=== PATIENT | female | born 2000 | race Caucasian/White ===

== ENCOUNTER 2020-04-28 10:12 | Outpatient (REF) | payer OTHER, SELFPAY | END 2020-04-28 10:13 | disposition home or self-care (01) | LOC: HO.LAB 10:12 | PROVIDERS: Visit Provider Internal Medicine | DX: Z20.828 Contact with and (suspected) exposure to other viral communicable diseases (principal) | CPT/HCPCS: C9803; U0003 ==

== ENCOUNTER 2020-04-30 13:44 | Emergency (ER) | payer OTHER, SELFPAY ==
[2020-04-30 14:54] VITALS: BP 142/89; PULSE 83; RESP 18; TEMP 36.1; O2SAT 99; BMI 38.9
--- NOTE | 2020-04-30 15:08 | ED.GENADULT ---
HPI - General Adult General Chief complaint: General Medical Stated complaint: back pain Time Seen by Provider: 04/30/20 14:59 Source: patient Mode of arrival: ambulatory Limitations: no limitations History of Present Illness HPI narrative: 19 y/o female presenting with acute onset of upper back pain that started after she was stretching her arms up over her head early this morning. She describes the pain and tight and aching, at times burning. It is worse with movement and palpation. She describes a hot feeling going from her head down to her back. She denies numbness, tingling, weakness, or neck pain. No trauma. She has not taken any medications for the pain. MD complaint: back pain Onset (ago): hour(s) (13) Location: back Radiation: back and neck Severity: moderate Severity scale (1-10): 8 Quality: burning, aching and sharp Pain Consistency: constant Relieving factors: none Exacerbating factors: movement Associated symptoms: denies other symptoms Treatments prior to arrival: none Related Data Previous Rx's Medication Instructions Recorded cyclobenzaprine 10 mg PO TID PRN #9 tab 04/30/20 lidocaine [Lidoderm] 1 patch TOPICAL DAILY #15 ea 04/30/20 naproxen 500 mg PO BID PRN #20 tab 04/30/20 Allergies Allergy/AdvReac Type Severity Reaction Status Date / Time latex [LATEX] Allergy Unknown RASH/ITCHY Verified 04/30/20 14:56 Review of Systems Review of Systems: Constitutional: No Fever, No Chills ENT/Mouth: No Swallowing Difficulty Eyes: No Eye Pain, No Swelling, No Redness, No photophobia Cardiovascular: No Chest Pain, No SOB Respiratory: No Cough, No Sputum Gastrointestinal: No Nausea, No Vomiting, No Diarrhea, No abdominal Pain Musculoskeletal: + joint pain, + Myalgias Skin: No Skin Lesions, No rash Neuro: No Weakness, No Numbness, No Dizziness, + Headache Heme/Lymph: No Bruising, No Lymphadenopathy PMFSH Past Medical History Attestation statement: The following information was validated with the patient. Medical History (Updated 04/30/20 @ 15:10 by MARK Love) Endometriosis Social History Social History Advance Directives: No Advance Directives Information Provided: Yes Physical Exam Vital Signs: Vital Signs: Last Vital Signs Temp 97.0 F 04/30/20 14:54 Pulse 83 04/30/20 14:54 Resp 18 04/30/20 14:54 BP 142/89 H 04/30/20 14:54 Pulse Ox 99 04/30/20 14:54 Body Mass Index 38.9 Appearance: Alert. Oriented X3. No acute distress. HEENT: normal inspection Neck: normal inspection, supple. no SCM tenderness, no LAD CVS: Normal heart rate and rhythm. Pulses normal. Respiratory: No respiratory distress. Skin: Skin warm and dry. Normal skin color. Normal skin turgor. No rashes. Back: soft tissue tenderness R>L, C7 area and upper thoracic area. palpable muscle spasm of trapezius muscle. Extremities: Upper extremities are atraumatic, normal inspection with normal ROM of bilateral shoulders and elbows. Neuro: Oriented X 3. No motor deficit. No sensory deficit. Course Course Course Narrative: 19 y/o female presenting with non-traumatic back pain consistent with muscle spasm. Non-focal on exam. Will treat accordingly and have her follow up with PCP. Stable for d/c. Patient agrees with plan. Discharge Plan Discharge Clinical Impression: Trapezius muscle spasm Patient Disposition: Home, Self-Care Instructions: Muscle Spasm (ED), Back Pain (ED) Additional Instructions: Your exam is consistent with muscle spasm in your upper back. Recommend using ice to the area several times per day for the next 24-48 hours, then switch to heat. Take the prescribed medications as directed. Limit twisting movement and lifting >10 lbs until you feel better. Follow up with your doctor this week. If you develop any new weakness, numbness, tingling, loss of function or any other concerning symptom come back to the ER for further evaluation. Prescriptions: New cyclobenzaprine 10 mg tablet 10 mg PO TID PRN (Reason: muscle spasm) Qty: 9 RF: 0 lidocaine [Lidoderm] 5 % adhesive patch,medicated 1 patch topical DAILY Qty: 15 RF: 0 naproxen 500 mg tablet 500 mg PO BID PRN (Reason: pain) Qty: 20 RF: 0
== END 2020-04-30 15:28 | disposition home or self-care (01) ==
LOC: HO.ED 15:20
PROVIDERS: Emergency Provider Emergency Medicine
DX: M62.830 Muscle spasm of back (principal); M54.6 Pain in thoracic spine
CPT/HCPCS: 99282; 99283

== ENCOUNTER 2020-05-08 07:38 | Outpatient (REF) | payer OTHER, SELFPAY | END 2020-05-08 07:39 | disposition home or self-care (01) | LOC: HO.LAB 07:38 | PROVIDERS: Visit Provider Internal Medicine | DX: Z20.822 Contact with and (suspected) exposure to COVID-19 (principal) | CPT/HCPCS: 36415; C9803; U0003 ==

== ENCOUNTER 2020-05-30 16:15 | Outpatient (REF) | payer OTHER, SELFPAY | END 2020-05-30 16:16 | disposition home or self-care (01) | LOC: HO.LAB 16:15 | PROVIDERS: Visit Provider Internal Medicine | DX: Z20.822 Contact with and (suspected) exposure to COVID-19 (principal) | CPT/HCPCS: 36415; C9803; U0003; U0005 ==

== ENCOUNTER 2020-06-13 07:56 | Emergency (ER) | payer OTHER, SELFPAY ==
[2020-06-13 09:14] VITALS: BP 142/73; PULSE 73; RESP 16; TEMP 37.1; O2SAT 98; BMI 43.0
--- NOTE | 2020-06-13 09:35 | ED.FEMALEGU ---
HPI - Female Genitourinary General Chief complaint: Urogenital-Female Stated complaint: ?UTI Time Seen by Provider: 06/13/20 09:34 Source: patient Mode of arrival: ambulatory Limitations: no limitations History of Present Illness HPI Narrative: 19 year-old female walked in to the ED with dysuria for 1 day, patient had a recent transvaginal ultrasound to check on her IUD, patient declined any fever chills, no abdominal pain, no flank pain. Related Data Previous Rx's Medication Instructions Recorded cyclobenzaprine 10 mg PO TID PRN #9 tab 04/30/20 lidocaine [Lidoderm] 1 patch TOPICAL DAILY #15 ea 04/30/20 naproxen 500 mg PO BID PRN #20 tab 04/30/20 nitrofurantoin monohyd/m-cryst 100 mg PO BID #20 cap 06/13/20 [Macrobid] Allergies Allergy/AdvReac Type Severity Reaction Status Date / Time latex [LATEX] Allergy Unknown RASH/ITCHY Verified 04/30/20 14:56 Review of Systems Review of Systems: All other systems are reviewed and are negative Constitutional: Reports as per HPI and Reports no additional constitutional complaints Eyes: Reports as per HPI and Reports no additional eye complaints Reports system reviewed and no additional complaints, except as documented Cardiovascular: Reports as per HPI and Reports no additional cardiovascular complaints Respiratory: Reports as per HPI and Reports no additional respiratory complaints Gastrointestinal: Reports as per HPI and Reports no additional gastrointestinal complaints Genitourinary: Reports no additional female genitourinary complaints Musculoskeletal: Reports no additional musculoskeletal complaints Skin/Breast: Reports system reviewed and no additional complaints, except as docu Psychiatric: Reports no additional psychiatric complaints Endocrine: Reports no additional endocrine complaints Hematologic/Lymphatic: Reports no additional hematologic/lymphatic complaints Allergic/Immunologic: Reports no additional allergic/immunologic complaints Reports system reviewed and no additional complaints, except as documented and Reports Abnormal speech present PMFSH Past Medical History Medical History Endometriosis Social History Social History Smoked in Last 30 Days: No Use of substances other than those prescribed or required for medical reasons: No Advance Directives: No Advance Directives Information Provided: No Physical Exam Vital Signs: Vital Signs: Last Vital Signs Temp 98.7 F 06/13/20 09:14 Pulse 73 06/13/20 09:14 Resp 16 06/13/20 09:14 BP 142/73 H 06/13/20 09:14 Pulse Ox 98 06/13/20 09:14 Body Mass Index 43.0 Vital signs have been reviewed as appeared to be correct. Blood pressure elevated. Heart rate normal. Respiration rate normal. Temperature normal. Oxygen saturation normal. Appearance: Alert. Oriented X3. No acute distress. Head: Normal external exam. Normocephalic. Atraumatic. No Beauchamp signs noted. No raccoon eyes noted Eyes: PERRLA. EOMI. Conjunctiva and sclera normal. Eyelids normal. ENT: TM's Normal. Pharynx normal. Uvula midline. Moist mucous membranes. No trismus noted. No drooling noted. No muffled voice noted. Neck: Normal inspection. Neck supple. FROM. No adenopathy. Thyroid Normal. No meningeal signs. No neck mass noted. CVS: Normal heart rate and rhythm. Heart sound normal. No murmurs noted. Pulses normal throughout. Respiratory: No respiratory distress. Painless inspiration. Breath sounds normal. No wheezes/rales/rhonchi noted. Chest nontender. No accessory muscle usage noted or decreased air movement noted. Abdomen: Soft and nontender. Bowel sounds normal in all 4 quadrants. No distention noted. No organomegaly noted. No visible injury noted. Back: No CVA tenderness. Full range of motion noted. Skin: Skin warm and dry. Normal skin color. Normal skin turgor. No rashes/lesions/lacerations noted. Extremities: No lower extremity edema. Extremities exhibit normal range of motion. Extremities nontender. Neuro: Oriented X 3. No motor deficit. No sensory deficit. Reflexes normal. Course Course Course Narrative: Came in with dysuria, positive leuko Estrace in the urine. Will treat with Macrobid, instructed to drink plenty of fluids. MDM - Female Genitourinary Lab Data Labs: Lab Results 06/13/20 Range/Units 09:49 Urine Color YELLOW Urine Appearance HAZY Urine pH 7.0 (5.0-8.0) Ur Specific [place] 1.020 (1.005-1.025) Urine Protein NEG (NEG-TRACE) MG/DL Urine Glucose (UA) NEG (NEG) MG/DL Urine Ketones NEG (NEG) MG/DL Urine Blood 1+ H (NEG) Urine Nitrite NEG (NEG) Ur Leukocyte Esterase 1+ H (NEG) Urine RBC 5-9 H (0) /HPF Urine WBC 50-75 H (0-4) /HPF Ur Squamous Epith Cells 1+ /LPF Urine Bacteria 2+ /LPF Urine Test NEGATIVE (NEGATIVE) Discharge Plan Discharge Clinical Impression: Urinary tract infection Patient Disposition: Home, Self-Care Instructions: Urinary Tract Infection in Women (ED) Prescriptions: New nitrofurantoin monohyd/m-cryst [Macrobid] 100 mg capsule 100 mg PO BID Qty: 20 RF: 0 No Action cyclobenzaprine 10 mg tablet 10 mg PO TID PRN (Reason: muscle spasm) Qty: 9 RF: 0 lidocaine [Lidoderm] 5 % adhesive patch,medicated 1 patch topical DAILY Qty: 15 RF: 0 naproxen 500 mg tablet 500 mg PO BID PRN (Reason: pain) Qty: 20 RF: 0 Referrals: [facility] [Primary Care Provider] - 2 days
[2020-06-13 10:03] LABS: Glucose Urine UA NEG (NEG); Leukocyte Esterase Urine 1+ (NEG); Nitrite Urine NEG (NEG); UACC Culture Trigger YES; Urine Blood 1+ (NEG); Urine Ketones NEG (NEG); Urine Protein NEG (NEG-TRACE)
[2020-06-13 10:04] LABS: Appearance Urine HAZY; Color Urine YELLOW
[2020-06-13 10:06] LABS: UPreg QC Valid YES; Urine Pregnancy NEGATIVE (NEGATIVE)
[2020-06-13 10:13] LABS: Squamous Epithelial Cell Urine 1+ /LPF; WBC Urine 50-75 /HPF (0-4)
[2020-06-13 10:14] LABS: Bacteria Urine 2+ /LPF
[2020-06-13] MEDS: Nitrofurantoin Monohyd/M-Cryst 100 MG CAPSULE PO (11:04)
[2020-06-13] MEDS: Phenazopyridine HCL 200 MG TABLET PO (11:04)
== END 2020-06-13 11:10 | disposition home or self-care (01) ==
PROVIDERS: Emergency Provider Emergency Medicine
DX: N39.0 Urinary tract infection, site not specified (principal); Z79.899 Other long term (current) drug therapy
CPT/HCPCS: 81001; 81003; 81025; 87086; 99283

== ENCOUNTER 2020-08-30 11:05 | Outpatient (REF) | payer OTHER, SELFPAY ==
[2020-08-30 11:59] LABS: COVID-19 Test Negative (Negative)
== END 2020-08-30 11:06 | disposition home or self-care (01) ==
LOC: HO.LAB 11:05
PROVIDERS: Visit Provider Internal Medicine
DX: Z20.822 Contact with and (suspected) exposure to COVID-19 (principal)
CPT/HCPCS: 36415; 87635; C9803

== ENCOUNTER 2021-02-02 09:16 | Emergency (ER) | payer MEDICAID, SELFPAY ==
[2021-02-02 09:30] VITALS: BP 138/73; PULSE 88; RESP 16; TEMP 36.2; O2SAT 97; BMI 40.7
[2021-02-02 09:51] LABS: Appearance Urine HAZY; Color Urine ORANGE; Urine Blood TRACE (NEG)
[2021-02-02 10:00] LABS: UPreg QC Valid YES; Urine Pregnancy NEGATIVE (NEGATIVE)
[2021-02-02 10:04] LABS: UACC Culture Trigger YES
[2021-02-02 10:06] LABS: Bacteria Urine 1+ /LPF; RBC Urine 0-2 /HPF (0); Squamous Epithelial Cell Urine 2+ /LPF; WBC Clumps Urine NOTED
--- NOTE | 2021-02-02 11:45 | ED_ITS ---
HPI - Female Genitourinary General Chief complaint: Urogenital-Female Stated complaint: ?uti Time Seen by Provider: 02/02/21 09:46 Source: patient Mode of arrival: ambulatory Limitations: no limitations History of Present Illness HPI Narrative: 20-year-old female with complaints of urinary frequency, urgency, burning with urination for 5 days. No abdominal pain. No nausea, vomiting, fevers or chills. She does report some low back pain. She is also having some white vaginal discharge. She is sexually active with 1 partner (). Not concern for STI. Has IUD. Feels like her vagina is irritated Related Data Previous Rx's Medication Instructions Recorded cyclobenzaprine 10 mg tablet 10 mg PO TID PRN #9 tab 04/30/20 lidocaine 5 % topical patch 1 patch TOPICAL DAILY #15 ea 04/30/20 (Lidoderm) naproxen 500 mg tablet 500 mg PO BID PRN #20 tab 04/30/20 nitrofurantoin 100 mg PO BID #20 cap 06/13/20 monohydrate/macrocrystals 100 mg capsule (Macrobid) fluconazole 150 mg tablet 150 mg PO Q3D #2 tab 02/02/21 (Diflucan) nitrofurantoin 100 mg PO Q12H 5 Days #10 cap 02/02/21 monohydrate/macrocrystals 100 mg capsule (Macrobid) phenazopyridine 200 mg tablet 200 mg PO TID PRN #10 tab 02/02/21 (Pyridium) Allergies Allergy/AdvReac Type Severity Reaction Status Date / Time latex [LATEX] Allergy Unknown RASH/ITCHY Verified 04/30/20 14:56 Review of Systems Review of Systems: Yes all other systems are reviewed and are negative Constitutional: Constitutional: Reports no additional constitutional complaints, Denies body ache(s), Denies chills, Denies fever(s), Denies headache(s) and Denies weakness Eyes: Eyes: Reports no additional eye complaints and Denies change in vision ENT: Reports system reviewed and no additional complaints, except as documented, Denies dizziness, Denies headache(s), Denies nasal congestion, Denies nasal discharge and Denies neck pain Cardiovascular: Cardiovascular: Reports no additional cardiovascular complaints, Denies chest pain, Denies leg edema and Denies dyspnea Respiratory: Respiratory: Reports no additional respiratory complaints, Denies cough and Denies dyspnea Gastrointestinal: Gastrointestinal: Reports no additional gastrointestinal complaints, Denies abdominal pain, Denies diarrhea, Denies nausea and Denies vomiting Genitourinary: Genitourinary: Reports no additional female genitourinary complaints, Denies hematuria, Reports dysuria, Denies pelvic pain, Denies flank pain, Denies urinary incontinence, Reports urinary urgency, Reports vaginal discharge and Reports vaginal pruritus Musculoskeletal: Musculoskeletal: Reports no additional musculoskeletal complaints, Denies back pain, Denies arthralgias, Denies joint swelling, Denies neck pain, Denies numbness and Denies tingling Integumentary/Breasts: Skin/Breast: Reports system reviewed and no additional complaints, except as docu and Denies rash Neurologic: Reports system reviewed and no additional complaints, except as documented, Denies Abnormal speech present, Denies dizziness, Denies headache(s), Denies numbness, Denies tingling and Denies weakness PMFSH Past Medical History Attestation statement: The following information was validated with the patient. Source: old records reviewed and nursing notes reviewed Medical History Endometriosis Social History Social History Advance Directives: No Patient : No Physical Exam Vital Signs: Vital Signs: Last Vital Signs Temp 97.2 F 02/02/21 09:30 Pulse 88 02/02/21 09:30 Resp 16 02/02/21 09:30 BP 138/73 02/02/21 09:30 Pulse Ox 97 02/02/21 09:30 Body Mass Index 40.7 Const: General: cooperative, healthy appearing, comfortable and no acute distress Orientation/consciousness: patient oriented x3 Limitations: no limitations HENMT: Head: Yes normal to inspection Ears: hearing grossly normal bilaterally General nose exam: Normal external nose present Face and sinus: Yes normal facial exam Mouth: Normal oral and palatal mucosa present Throat: Yes posterior oropharynx normal Eyes: General: appearance normal, both eyes and all related structures Pupils: Equal, round and reactive pupils present Neck: Neck: Yes normal visual inspection Chest: Chest palpation & inspection: normal inspection of the chest Resp: Effort & Inspection: normal respiratory effort Auscultation: clear to auscultation bilaterally Cardio: Rate: regular rate Rhythm: regular rhythm Peripheral pulses: Peripheral pulses 2+ throughout GI: Inspection: Yes normal to inspection Palpation (GI): Soft to palpation and nontender Auscultation: normal bowel sounds : Other: Deferred exam General: Yes no CVA tenderness Back/Spine/Pelvis: Back: no CVA tenderness Thoracic/Lumbar Spine: thoracic and lumbar spine normal to inspection Skin: General skin exam: no rashes or lesions noted Neuro: General: patient oriented x3, no focal motor deficits and normal sensat ion to monofilament Cranial nerves: Yes Equal, round and reactive pupils present Cognition (Neuro): normal cognition Speech: No Abnormal speech present Gait exam (Neuro): Normal gait present Motor exam (neuro): 5/5 motor strength present throughout Extrem: General: Yes normal to inspection Course Course Course Narrative: 20-year-old female here with UTI symptoms for 5 days. UA is slightly obscured due to patient taking as 0 prior to arrival but it does appear that she has a UTI. Will treat with course of Macrobid. Also has symptoms of a vaginal discharge and irritation. Not concerned for STDs but would like to be tested. Deferred treatment and aware she will need to return if she has positive. Will treat for presumed Tita. Reviewed worrisome signs and symptoms of when to return to the emergency department. Comfortable discharge home. MDM - Female Genitourinary MDM Narrative Medical decision making narrative: Less likely pyelonephritis with no reports of flank pain, no CVA tenderness or vomiting or fever Less likely PID with no reports of pelvic pain, fever or vomiting Medical Records Attestation: I reviewed the patient's medical records. Lab Data Attestation: I reviewed the patient's lab results. Labs: Lab Results 02/02/21 02/02/21 Range/Units 09:37 09:37 Urine Color ORANGE Urine Appearance HAZY Urine pH 5.0 (5.0-8.0) Ur Specific [place] 1.020 (1.005-1.025) Urine Protein SEE NOTE (NEG-TRACE) MG/DL Urine Glucose (UA) SEE NOTE (NEG) MG/DL Urine Ketones SEE NOTE (NEG) MG/DL Urine Blood TRACE (NEG) Urine Nitrite SEE NOTE (NEG) Ur Leukocyte Esterase SEE NOTE (NEG) Urine RBC 0-2 (0) /HPF Urine WBC 10-14 H (0-4) /HPF Urine WBC Clumps NOTED Ur Squamous Epith Cells 2+ /LPF Urine Bacteria 1+ /LPF Urine Test NEGATIVE (NEGATIVE) Discharge Plan Discharge Clinical Impression: Urinary tract infection, Vaginitis Patient Disposition: Home, Self-Care Instructions: Urinary Tract Infection in Women (ED), Yeast Infection (ED) Additional Instructions: Increase fluids, rest We will call you tomorrow if your test results are positive Prescriptions: New nitrofurantoin monohyd/m-cryst [Macrobid] 100 mg capsule 100 mg PO Q12H 5 Days Qty: 10 RF: 0 phenazopyridine [Pyridium] 200 mg tablet 200 mg PO TID PRN (Reason: pain) Qty: 10 RF: 0 fluconazole [Diflucan] 150 mg tablet 150 mg PO Q3D Qty: 2 RF: 0 No Action nitrofurantoin monohyd/m-cryst [Macrobid] 100 mg capsule 100 mg PO BID Qty: 20 RF: 0 cyclobenzaprine 10 mg tablet 10 mg PO TID PRN (Reason: muscle spasm) Qty: 9 RF: 0 lidocaine [Lidoderm] 5 % adhesive patch,medicated 1 patch topical DAILY Qty: 15 RF: 0 naproxen 500 mg tablet 500 mg PO BID PRN (Reason: pain) Qty: 20 RF: 0 Referrals: Candy Bain [Primary Care Provider] - 2 days Interventions: ED Discharge Assessment Last Done: 02/02/21 11:40 Discharge Date/Time: 02/02/21 11:40
[2021-02-02 13:44] LABS: CT PCR NOT DETECTED (Not Detect.); NG PCR NOT DETECTED (Not Detect.)
[2021-02-04 12:29] LABS: BV Int Neg Control Negative (Negative); BV Int Pos Control Positive (Positive)
== END 2021-02-02 11:40 | disposition home or self-care (01) ==
PROVIDERS: Nurse Practitioner Family; Emergency Provider Emergency Medicine Emergency Medical Services; PCP Nurse Practitioner
DX: N39.0 Urinary tract infection, site not specified (principal); N76.0 Acute vaginitis; R35.0 Frequency of micturition; R30.0 Dysuria; Z79.899 Other long term (current) drug therapy
CPT/HCPCS: 81001; 81003; 81025; 87086; 87088; 87186; 87480; 87491; 87510; 87591; 87660; 99284

== ENCOUNTER 2022-11-10 13:13 | Outpatient (REF) | payer MEDICAID, SELFPAY ==
--- NOTE | ~2022-11-10 | US_ITS ---
EXAMINATION: US PELVIS CLINICAL INFORMATION: HIRSUTISM COMPARISON: Previous pelvic ultrasound July 2017 TECHNIQUE: Ultrasound of the pelvis is performed using both transabdominal and transvaginal transducers along with Doppler. Transvaginal imaging is performed due to inadequate visualization transabdominally. FINDINGS: The uterus is anteverted and measures 8.3 x 3.5 x 4.7 cm in dimension. There is an IUD in the uterus satisfactory position. Endometrial thickness is normal measuring 0.4 cm. No focal uterine lesion is seen. There is a small amount of fluid seen in the endocervical canal. Cervix is otherwise unremarkable. The ovaries are seen transabdominally only. The right ovary measures 2.6 x 1.3 x 2.1 cm. Left ovary measures 3.2 x 1.6 x 2.2 cm. There is a small amount of fluid in the pelvis. US/US pelvic and transvaginal IMPRESSION: IUD in the uterus in satisfactory position. Otherwise unremarkable exam.
== END 2022-11-10 13:14 | disposition home or self-care (01) ==
LOC: HO.US 13:13
PROVIDERS: Visit Provider Registered Nurse
DX: L68.0 Hirsutism (principal)
CPT/HCPCS: 76830; 76856

== ENCOUNTER → 2022-11-12 14:44 | Outpatient (BNVA) | payer SELFPAY | PROVIDERS: PCP Nurse Practitioner ==

== ENCOUNTER 2022-12-26 14:31 | Outpatient (REF) | payer MEDICAID, SELFPAY ==
[2022-12-31 13:03] LABS: VITAMIN D (1,25 OH) D3 42 pg/mL; Vit D (1,25-Dihydroxy) Total 42 pg/mL (18-72); Vitamin D (1,25 OH) D2 <8 pg/mL
== END 2022-12-26 14:32 | disposition home or self-care (01) ==
LOC: HO.CHCLDS 14:31
PROVIDERS: Visit Provider Family Medicine
DX: E55.9 Vitamin D deficiency, unspecified (principal)
CPT/HCPCS: 36415; 82652

== ENCOUNTER 2023-06-23 15:56 | Outpatient (REF) | payer MEDICAID, SELFPAY ==
[2023-06-23 17:31] LABS: MANUAL DIFF FLAG NO
[2023-06-23 17:33] LABS: Basophils Percent Auto 0.7 % (0-2); Eosinophils Absolute Auto 0.1 X10*3/uL (0.0-0.4); Hematocrit 37.6 % (37.0-47.0); Hemoglobin 12.7 g/dl (12.0-16.0); Imm Gran Abs Auto 0.01 X10*3/uL (0.00-0.03); Imm Gran Pct Auto 0.2 % (0.0-0.4); Lymphocytes Absolute Auto 2.1 X10*3/uL (1.2-4.9); Lymphocytes Percent Auto 37.8 % (20-40); Mean Corpuscular HGB Conc 33.8 g/dl (31.0-35.0); Mean Corpuscular Volume 88.7 fL (80.0-98.0); Mean Platelet Volume 10.1 fL (9.4-12.3); Monocytes Absolute Auto 0.5 X10*3/uL (0.1-1.2); Neutrophils Absolute Auto 2.9 x10*3/uL (2.0-8.3); Neutrophils Percent Auto 51.3 % (45-73); Platelet Count 269 X10*3/uL (160-400); Red Blood Count 4.24 X10*6/uL (4.20-5.50); Red Cell Distribution Width 13.3 % (11.0-16.0); White Blood Count 5.6 X10*3/uL (4.8-10.8)
[2023-06-23 17:51] LABS: Alanine Aminotransferase 9 U/L (0-31); Albumin Level 4.1 g/dL (3.5-5.0); Alkaline Phosphatase 47 U/L (39-117); Anion Gap 11 (12-20); Aspartate Amino Transferase 13 U/L (5-31); Bilirubin Total 0.4 mg/dL (0.0-1.0); Blood Urea Nitrogen 9 mg/dL (9-16); Calcium 9.3 mg/dL (8.4-10.2); Carbon Dioxide 20 mmol/L (22-29); Chloride 112 mmol/L (96-108); Estimated Glomerular Filt Rate > 60; Glucose Random 77 mg/dL (60-115); Iron 79 mcg/dL (30-160); Percent Iron Saturation 35 % (15-50); Potassium 3.3 mmol/L (3.3-5.1); Sodium 140 mmol/L (135-145); Total Iron Binding Capacity 224 mcg/dL (228-428); Total Protein 7.2 g/dL (6.5-8.0); Unsaturated Iron Binding 145 ug/dL
[2023-06-23 18:05] LABS: Vitamin D 25-OH Total 34.7 ng/mL (>30)
[2023-06-23 18:19] LABS: Folate 8.7 ng/mL (> or = 4.0)
[2023-06-24 14:49] LABS: Vitamin B12 292 pg/mL (200-900)
== END 2023-06-23 15:57 | disposition home or self-care (01) ==
LOC: HO.CHCLDS 15:56
PROVIDERS: Visit Provider Family Medicine
DX: E55.9 Vitamin D deficiency, unspecified (principal); Z98.84 Bariatric surgery status
CPT/HCPCS: 36415; 80053; 82306; 82607; 82746; 83540; 85025

== ENCOUNTER 2025-04-25 10:53 | Outpatient (REF) | payer MEDICAID, SELFPAY ==
[2025-04-25 13:58] LABS: Hematocrit 38.9 % (37.0-47.0); Hemoglobin 12.8 g/dl (12.0-16.0); Mean Corpuscular HGB Conc 32.9 g/dl (31.0-35.0); Mean Corpuscular Hemoglobin 28.0 pg (27.0-33.0); Mean Corpuscular Volume 85.1 fL (80.0-98.0); NRBC Abs Auto 0.000 X10*3/uL (0.0-0.012); NRBC Pct Auto 0.0 /100WBC (0.0-0.2); Platelet Count 264 X10*3/uL (160-400); Red Blood Count 4.57 X10*6/uL (4.20-5.50); White Blood Count 3.7 X10*3/uL (4.8-10.8)
[2025-04-25 14:39] LABS: Anion Gap 9 (12-20); Blood Urea Nitrogen 10 mg/dL (9-16); Calcium 9.2 mg/dL (8.4-10.2); Carbon Dioxide 28 mmol/L (22-29); Chloride 107 mmol/L (96-108); Estimated Glomerular Filt Rate > 60; Magnesium 2.2 mg/dL (1.6-2.6); Potassium 4.1 mmol/L (3.3-5.1); Sodium 140 mmol/L (135-145)
--- OUTSIDE RECORDS SUMMARY | 2025-04-25 14:45 | XMS_ITS | Encounter Summary ---
Author Organization [employer] Address [address] [place] [address] Care Team Providers Care Biological Scientist Name Role Phone Joanna Rivera MD Primary Care Provider Mathew Mcqueen RN Unavailable [phone] Mary Espinoza Unavailable Reason for Visit * Reason Onset Date Comments Nurse Triage 04/04/2025 Encounter Details Date Type Department Care Team ([facility] st Contact Info) Description 04/04/2025 Telephone [facility] [address] [place], [place] [phone] Joanna Rivera MD [address] [place], [place] [phone] Nurse Triage Social History Tobacco Use Types Packs/Day Years Used Date Smoking Tobacco: Never Passive Smoke Exposure: Never Smokeless Tobacco: Never Alcohol Use Standard Drinks/Week Comments Not Currently 0 (1 standard drink = 0.6 oz pur e alcohol) Depression Answer Date Recorded Patient Health Questionnaire-9 Score 0 06/30/2024 Patient Health Questionnaire-9 Score 0 06/30/2024 Last PHQ-9: Questionnaire Data Not on file 0 06/30/2024 Housing Stability Answer Date Recorded What is your housing situation today? I have dede morales 06/30/[address] you li ve. Do you have problems with any of the following? None of the above 06/30/2024 Food Insecurity Answer Date Recorded Within the past 12 months, y ou worried that your food would run out before you got money to buy more: Never True 06/30/2024 Within the past 12 months,th e food you bought just didn't last and you didn't have enough money to get more: Never True 09/2024 Transportation Answer Date Recorded In the past 12 months, has l ack of transportation kept you from medical appts, meetings, work or from getting things needed for daily living? No 06/30/2024 Utilities Answer Date Recorded In the past 12 months, has t he electric, gas, oil or water company threatened to shut off services in your home? No 06/30/2024 Depression Answer Date Recorded Patient Health Questionnaire-2 Score 0 06/30/2024 Internet Access Answer Date Recorded Internet Access Q1 Yes 06/30/2024 Internet Access Q2 Not on file 06/30/2024 Comments Unknown Sex and Gender Information Value Date Recorded Sex Assigned at Female 02/24/2022 10:31 AM EDT Legal Sex Female 10:31 AM EDT Gender Identity Female 02/24/2022 10:31 AM EDT Sexual Orientation Straight 02/24/2022 10 :31 AM EDT documented as of this encounter Miscellaneous Notes * Telephone Encounter - Delaney Davis - 04/04/2025 8:16 AM EST Symptom: Heartbeat Symptoms (Fast, Slow, or Irregular) Outcome: Schedule an urgent appointment (within 1 hour) or talk to a nurse or provider soon Reason: Started within the past 3 days The caller accepted this outcome. Contact pt at [phone] documented in this encounter Plan of Treatment Upcoming Encounters Date Type Department Care Team ([facility] st Contact Info) Description 05/18/2025 2:00 PM EST Office Visit [facility] [address] [place] [address] Joanna Rivera MD [address] [place] [address] documented as of this encounter Visit Diagnoses Not on filedocumented in this encounter Additional Health Concerns Assessment Noted Time PHQ-9 Depression Total Score: 0 07/01/19 8:54 AM EST documented as of this encounter Care Teams Biological Scientist Relationship Specialty Start Date End Date Joanna Rivera MD [address] [place] [address] PCP - General Family Medicine 10/24/22 Mathew Mcqueen, LUBA [address] [place] [address] Registered Nurse Family Medicine 04/04/25 Mary Espinoza 04/04/25 documented as of this encounter
--- OUTSIDE RECORDS SUMMARY | 2025-04-25 14:45 | XMS_ITS | Clinical Summary ---
Author Organization [facility] Prior to 09/24/24 Address [address] [place] [address] Care Team Providers Care [employer] Farm Manager Name Role Phone Unavailable Primary Care Provider Unavailabl e Allergies Active Allergy Reactions Criticality Noted Date Comments Latex 12/25/2022 Medications Medication Sig Dispensed Refills Start Date End Date Status omeprazole (PriLOSEC) 20 MG capsule Take by mouth daily. 0 Active acetaZOLAMIDE (DIAMOX) 250 MG tablet Take 2 tablets (500 mg total) by mouth 2 (two) times a day. 0 Active Social History Tobacco Use Types Packs/Day Years Used Date Smoking Tobacco: Never Assessed Sex and Gender Information Value Date Recorded Sex Assigned at Female 12/24/2022 3:25 PM EDT Gender Identity Not on file Sexual Orientation Not on file Job Start Date Occupation Industry Not on file Not on file Not on file Last Filed Vital Signs Vital Sign Reading Time Taken Comments Blood Pressure 122/69 12/25/2022 9:20 AM EDT Pulse 72 12/25/2022 9:20 AM EDT Temperature 36.3 C (97.3 F) 12/25/2022 9:20 AM EDT Respiratory Rate - - Oxygen Saturation 100% 12/25/2022 9:20 AM EDT Inhaled Oxygen Concentration - - Weight 89.8 kg (198 lb) 12/25/2022 9:20 AM EDT Height 157.5 cm (5' 2 ) 12/25/2022 9:20 AM EDT Body Mass Index 36.21 12/25/2022 9:20 AM EDT Plan of Treatment Health Maintenance Due Date Last Done Comments Hepatitis B Vaccines (1 of 3 - 3-dose series) 1998 Hepatitis C Screening 1998 COVID-19 Vaccine (#1) 04/27/1999 Depression Screening 2010 Preventative Health Evaluation 2016 Cervical Cancer Screening (Pap Smear) 10/26/2019 Influenza Vaccine (#1) 2024 9, 01/27/2018 DTap / Tdap / Td (2 - Td or Tdap) 01/10/2029 01/10/2019 Pneumococcal Vaccine Aged Out No long er eligible based on patient's age to complete this topic RSV Ped < 20 months Aged Out No longe r eligible based on patient's age to complete this topic
--- OUTSIDE RECORDS SUMMARY | 2025-04-25 14:45 | XMS_ITS | Clinical Summary ---
Author Organization [address] [place] [address] Address [address] [place] [address] Phone Care Team Providers Care Tuberculosis Specialist Name Role Phone Joanna Rivera MD Primary Care Provider [phone] Allergies Active Allergy Reactions Criticality Noted Date Comments Latex Itching,Rash Low 02/24/2018 Medications amitriptyline HCl (AMITRIPTYLINE ORAL) Take by mouth. Active ACETAZOLAMIDE ORAL Take by mouth. Active wheat dextrin 3 gram/3.8 gram powder Take 4 g by mouth daily. 12/02/2022 Active Active Problems Problem Noted Date Diagnosed Date Weight loss 04/04/2024 Surgical History Surgery Date Site/Laterality Comments OTHER SURGICAL HISTORY 2012 PROCEDURE: ---- OTHER ----; COMMENT: some type of procedure for endometrosis in [place] Medical History Medical History Date Comments Endometriosis DX:Endometriosis Obese DX:Obese Tachycardia DX:Tachycardia; COMMENT: pt states sometimes she will be resting and feel her heartbeat go very fast. she has never seen a rrts unsure if anxiety Idiopathic intracranial hypertension DX:Idiopathic intracranial hypertension Overweight (BMI 25.0-29.9) 03/17/2023 DX:Ov erweight (BMI 25.0-29.9) Family History Medical History Relation Name Comments Hypertension Father Other: Other Father fast heart beat per pt. unsure if on medication or if there is an actual dx Arthritis Maternal Grandmother Diabetes Maternal Grandmother Arthritis Mother Hypertension Paternal Grandmother Relation Name Status Comments Father Alive Maternal Grandmother Alive Mother Alive Paternal Grandmother Social History Tobacco Use Types Packs/Day Years Used Date Smoking Tobacco: Never Smokeless Tobacco: Never Alcohol Use Standard Drinks/Week Comments No 0 (1 standard drink = 0.6 oz pur e alcohol) Comments Unknown Sex and Gender Information Value Date Recorded Sex Assigned at Not on file Legal Sex Female 11:37 PM EST Gender Identity Not on file Sexual Orientation Not on file Last Filed Vital Signs Vital Sign Reading Time Taken Comments Blood Pressure 106/69 01/19/2024 4:05 PM EDT Pulse 73 01/19/2024 4:05 PM EDT Temperature - - Respiratory Rate - - Oxygen Saturation - - Inhaled Oxygen Concentration - - Weight 50.8 kg (112 lb) 04/04/2024 8:00 AM EST Height 157.5 cm (5' 2 ) 01/19/2024 4:05 PM EDT Body Mass Index 20.49 01/19/2024 4:05 PM EDT Plan of Treatment Health Maintenance Due Date Last Done Comments HPV Vaccines (1 - 3-dose series) 2013 Hepatitis B Vaccines (1 of 3 - 19+ 3-dose series) 2017 Social Influencers of Health Screening 03/30/2022 Cervical Cancer Screening: Pap Smear 11/03/2023 11/02/2020 Depression Screening 04/27/2024 COVID-19 Vaccine (2 - 2024-2 6 season) 2024 07/04/2022 Influenza Vaccine (#1) 2024 , 01/27/2018 Cholesterol Screening (Lipid Panel) 07/04/2027 07/03/2022 DTaP,Tdap,and Td Vaccines (2 - Td or Tdap) 01/10/2029 01/10/2019 RSV Immunization Adult Patients (1 - 1-dose 75+ series) 2073 Gonorrhea/Chlamydia Screening Discontinued 08/27/2021 HIV Screening Completed 07/03/2022, 07/03/2022 Hepatitis C Screening Completed 07/03/2022 , 07/03/2022 Varicella Vaccines Aged Out 10/27/2022 No longer eligible based on patient's age to complete this topic HIB Vaccines Aged Out No longer eligi ble based on patient's age to complete this topic Hepatitis A Vaccines Aged Out No long er eligible based on patient's age to complete this topic IPV Vaccines Aged Out No longer eligi ble based on patient's age to complete this topic MMR Vaccines Aged Out No longer eligi ble based on patient's age to complete this topic Meningococcal ACWY Vaccine Aged Out N o longer eligible based on patient's age to complete this topic Meningococcal B Vaccine Aged Out No l onger eligible based on patient's age to complete this topic Pneumococcal Vaccine: Pediatrics (0 to 5 Years) and At-Risk Patients (6 to 49 Years) Aged Out No longer eligible based on patient's age to complete this topic RSV Immunization Patients Under 20 months Aged Out No longer eligible based on patient's age to complete this topic Procedures Procedure Name Priority Date/Time Associated Diagnosis Comments HEPATITIS C SCREENING Routine 07/03/2022 HIV SCREENING Routine 07/03/2022 LIPID PANEL Routine 07/03/2022 GONORRHEA/CHLAMYDIA SCRREENING Routine 08/27/2021 PAP SMEAR Routine 11/02/2020 from Last 3 Months or Most Recently Relevant to Health Maintenance Results * HIV Screening (07/03/2022) Pathologist [facility] HIV Screening abstracted [facility] Final Result * Hepatitis C Screening (07/03/2022) Pathologist [facility] Hepatitis C Screening abstracted [facility] Final Result * Lipid panel (07/03/2022) [facility] LDL/HDL Ratio 0 Comment:no interpretation Triglycerides 0 mg/dL Comment:no interpretation Cholesterol 0 mg/dL Comment:no interpretation HDL 0 mg/dL Comment:no interpretation LDL Cholesterol 0 mg/dL Comment:no interpretation Blood Venous blood specimen / Unknown Result [facility] Provider LAB BLOOD ORDERABLES Bernadette l Result * Gonorrhea/Chlamydia Screening (08/27/2021) Pathologist [facility] Gonorrhea/Chla mydia Screening abstracted us Historical Provider HEALTH MAINTENANCE Final Result * Pap Smear (11/02/2020) [facility] Pap smear no interpretation , abstracted Historical Provider HEALTH MAINTENANCE Final Result from Last 3 Months or Most Recently Relevant to Health Maintenance Insurance MEDICAID - [place] Care Teams Tuberculosis Specialist Relationship Specialty Start Date End Date Joanna Rivera MD [address] [place] [address] PCP - General 08/21/23
--- OUTSIDE RECORDS SUMMARY | 2025-04-25 14:46 | XMS_ITS | Encounter Summary ---
Author Organization [employer] Address [address] [facility] [address] [place] [address] Care Team Providers Care Blending Tank Tender Helper Name Role Phone Aleta MatsonP Primary Care Provider Joanna Bryant MD Primary Care Provider [phone] Celina Joyner RN Unavailable [phone] Mary Espinoza Unavailable Mathew Mcqueen RN Unavailable [phone] Mary Espinoza Unavailable Reason for Visit * Reason Onset Date Comments Referral 08/27/2022 Encounter Details Date Type Department Care Team (Late st Contact Info) Description 08/27/[address] [facility] MEDICINE [address] [place], [place] [id number] Aleta Matson FNP Referral Social History Tobacco Use Types Packs/Day Years Used Date Smoking Tobacco: Never Smokeless Tobacco: Never Alcohol Use Standard Drinks/Week Comments Not Currently 0 (1 standard drink = 0.6 oz pur e alcohol) Depression Answer Date Recorded Patient Health Questionnaire-9 Score 4 07/03/2022 Depression Answer Date Recorded Patient Health Questionnaire-2 Score 1 07/03/2022 Comments Unknown Sex and Gender Information Value Date Recorded Sex Assigned at Female 02/24/2022 10:31 AM EDT Legal Sex Female 10:31 AM EDT Gender Identity Female 02/24/2022 10:31 AM EDT Sexual Orientation Straight 02/24/2022 10 :31 AM EDT COVID-19 Exposure Response Date Recorded In the last 10 days, have yo u been in contact with someone who was confirmed or suspected to have Coronavirus/COVID-19? No / Unsure 07/31/2022 10:07 AM EDT documented as of this encounter Miscellaneous Notes * Telephone Encounter - Yoselin Kevin - 08/27/2022 1:06 PM EDT Tc from [place] with [facility] requesting a new referral for Mass of Right Ovary MRI sent over. Osiris states taht referral most say Without and With Contrast. Osiris states that pt also has anappt on Aug 30 2022. Please if any question please contact Osiris at [phone] documented in this encounter Plan of Treatment Upcoming Encounters Date Type Department Care Team ([facility] st Contact Info) Description 05/18/2025 2:00 PM EST Office Visit [facility] MED & PEDS [address] [place] [address] Joanna Rivera MD [address] [place] [address] documented as of this encounter Visit Diagnoses Not on filedocumented in this encounter Additional Health Concerns Assessment Noted Time PHQ-9 Depression Total Score: 4 07/04/19 23 11:32 AM EST documented as of this encounter Care Teams Blending Tank Tender Helper Relationship Specialty Start Date End Date Aleta Matson FNP PCP - General Family Medicine 12/18/21 10/23/22 Joanna Rivera MD [address] [place] [address] PCP - General Family Medicine 10/24/22 Celina Joyner, LUBA [address] [place] [address] Registered Nurse Family Medicine 11/15/24 01/11/25 Mary Espinoza 11/15/24 01/11/25 Mathew Mcqueen, RN [address] [place] [id number] Registered Nurse Family Medicine 04/04/25 Mary Espinoza 04/04/25 documented as of this encounter
--- OUTSIDE RECORDS SUMMARY | 2025-04-25 14:46 | XMS_ITS ---
Author Organization [employer] Address [address] [facility] 7 [place] [address] Care Team Providers Care Blow Molding Machine Tender Name Role Phone Joanna Rivera MD Primary Care Provider Mathew Mcqueen RN Unavailable [phone] Mary Espinoza Unavailable [facility] Complex Status:Outreach In Progress (Enrolling) Start date:04/04/2025 Enrollment reason:ADT Feed Overview ED- Pt went to [facility] ED on 04/03/25. . Case Team Name Relationship Phone Mary Espinoza(Responsible Staff) [phone] Continued Care and Services Coordination
--- OUTSIDE RECORDS SUMMARY | 2025-04-25 14:46 | XMS_ITS | Encounter Summary ---
Author Organization [employer] Address [address] [facility] [address] [place] [address] Care Team Providers Care Mine Safety Engineer Name Role Phone Aleta Matson Primary Care Provider Joanna Bryant MD Primary Care Provider [phone] Celina Joyner RN Unavailable [phone] Mary Espinoza Unavailable Mathew Mcqueen RN Unavailable [phone] Mary Espinoza Unavailable Reason for Visit * Reason Onset Date Comments Order 08/29/2022 Encounter Details Date Type Department Care Team (Late st Contact Info) Description 08/29/2022 Telephone [facility] [address] [place], [place] [phone] Aleta Matson FNP Order Social History Tobacco Use Types Packs/Day Years [...] encounter Miscellaneous Notes * Telephone Encounter - Cyndee Topete - 08/29/2022 2:06 PM EDT Tc [place] [facility] calling to request status on message below. * Telephone Encounter - Yokasta Koch - 08/29/2022 8:28 AM EDT Tc from [place] at [facility] requesting a new order for MRI pelvis. States order needs to say pelvis with and without contrast and authorization needs to be verified. Patient will be seen 08/30/22. Any further questions please call [phone] and fax number [phone]. documented in this encounter Plan of Treatment Upcoming Encounters Date Type Department Care Team (Late st Contact Info) Description 05/18/2025 2:00 PM EST Office Visit [facility] MED & PEDS [address] [place] [address] Joanna Rivera MD [address] [place] [address] documented as of this encounter Visit Diagnoses Not on filedocumented in this encounter Additional Health Concerns Assessment Noted Time PHQ-9 Depression Total Score: 4 07/04/19 23 11:32 AM EST documented as of this encounter Care Teams Mine Safety Engineer Relationship Specialty Start Date End Date Aleta Matson FNP PCP - General Family Medicine 12/18/21 10/23/22 Joanna Rivera MD [address] [place] [address] PCP - General Family Medicine 10/24/22 Celina Joyner, LUBA [address] [place] [address] Registered Nurse Family Medicine 11/15/24 01/11/25 Mary Espinoza 11/15/24 01/11/25 Mathew Mcqueen, LUBA [address] [facility] [place] [address] Registered Nurse Family Medicine 04/04/25 Mary Espinoza 04/04/25 documented as of this encounter
--- OUTSIDE RECORDS SUMMARY | 2025-04-25 14:46 | XMS_ITS | Clinical Summary ---
Author Organization [employer] Address [address] [facility] 7t [place] [address] Care Team Providers Care Technical Engineer Name Role Phone Joanna Rivera MD Primary Care Provider [phone] Mathew Mcqueen RN Unavailable [phone] Mary Espinoza Unavailable Allergies Active Allergy Reactions Criticality Noted Date Comments Bee Venom 12/26/2022 Latex Rash Low 10/23/2022 Sertraline 11/14/2020 Other reaction(s): Confusion, memory impairment Medications Levonorgestrel (Liletta, 52 MG,) 20.1 MCG/DAY intrauterine device inserted 2019 at outside facility Active acetaZOLAMIDE (Diamox) 500 MG 12 hr capsule Take 500 mg by mouth. 3 Active pantoprazole (ProtoNix) 40 MG EC tablet Take 40 mg by mouth before breakfast. Do not crush, chew, or split. Active ursodiol (Actigall) 300 MG capsule Take 300 mg by mouth 2 times daily. Active fremanezumab (Ajovy) 225 MG/1.5ML auto-injectorInd ications:Headach es, Neurology Active amitriptyline (Elavil) 25 MG tablet Take 25 mg by mouth. 3 Active metoclopramide (Reglan) 10 MG tablet Take 1 tablet (10 mg) by mouth 4 times daily for 10 days. 40 tablet 4 Active albuterol 108 (90 Base) MCG/ACT inhaler Inhale 2 puffs every 6 (six) hours if needed for wheezing or shortness of breath. 18 g 3 4 Active Additional Information Patient not taking.Reported on 11/22/2024 fluticasone (Flonase Allergy Relief) 50 MCG/ACT nasal spray Administer 1 spray into each nostril Once per day. Shake gently. Before first use, prime pump. After use, clean tip and replace cap. 16 g 12 Active amoxicillin-clav ulanate (Augmentin) 875-125 MG tablet Take 1 tablet by mouth 2 times daily. 14 tablet Active Additional Information Patient not taking.Reported on 11/22/2024 acetaminophen (Tylenol) 500 MG tablet Take 2 tablets (1,000 mg) by mouth every 6 (six) hours if needed for moderate pain or fever for up to 25 doses. 40 tablet Active Multiple Vitamin (Daily-Bryan Multivitamin) tablet TAKE 1 TABLET BY MOUTH EVERY DAY 90 tablet 1 Active Additional Information Patient not taking.Reported on 11/22/2024 Ubrogepant (Ubrelvy) 100 MG tablet Take 100 mg by mouth if needed (migraine attack). Active tiZANidine (Zanaflex) 2 MG capsule Take 2 mg by mouth at bedtime. Active Active Problems Problem Noted Date Diagnosed Date Left sided numbness 08/19/2023 Assessment & Plan (08/19/2023 9:57 AM EDT): Patient reports she has on and off given her intracranial issues, weakness and difficulties to ambulate. Reports she used to have a placard and that she needs a replacement. Overweight 06/23/2023 Chronic mid back pain 06/23/2023 Assessment & Plan (06/23/2023 5:38 PM EST): Reports worsen since weight loss due to bariatric surgery, paraspinal spasms on exam, will refer to chiropracter and will send x ray, consider PT. Chronic left hip pain 06/23/2023 Assessment & Plan (08/18/2023 4:55 PM EDT): Referring to Orthopaedic to further investigate left hip pain and numbness. 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 Consider PT. Pending x ray results, also consider referral to ortho Status post bariatric surgery 06/23/2023 Assessment & Plan (06/23/2023 5:40 PM EST): Discussed calorie deficit, recommended reduction of 20-30% of maintenance calories. Recommended to decrease soda and sugary beverage consumption. Recommended at least 20 g per meal of protein to assist with satiety. Recommended at least 150 min/week of moderate intensity exercise. Seizure disorder (CMS/HCC) 11/27/2022 Hidradenitis suppurativa 10/23/2022 Overview (10/23/2022): Chronic lesions since age 11 in eri cleft, buttock/groin, and under breasts. Hx and exam C/w HS Assessment & Plan (10/23/2022 9:10 PM EDT): Will Rx clindamycin lotion to treat lesions Notify clinic if not covered by insurance or no improvement in 1 month Followup with new PCP 3 months or sooner PRN Next steps: Oral minocycline or other antibiotic for treatment of HS Benign intracranial hypertension 09/28/2022 Overview (11/09/2022): Confirmed by [facility], appt 09/11/22 Care managed by Neurology LP 06/18/22 Neuro stopped Topiramate d/t SE Treating BIH with Diamox, current dose per patient is 500mg 1 tablet daily Taking Nurtec 75 mg 1 tablet PRN for headache Next appt 11/25/22 Assessment & Plan (08/18/2023 4:58 PM EDT): Continue current medications for symptoms, referring to Neurologist for further investigation. Assessment & Plan (10/23/2022 9:07 PM EDT): Continue Diamox, current dose per patient is 500mg 1 tablet daily Taking Nurtec 75 mg 1 tablet PRN for headache Followup w/ Neurology Next appt 11/25/22 PCOS (polycystic ovarian syndrome) 09/17/2022 Overview (10/23/2022): Pt has hirsutism and MRI pelvis 08/30/22 showed R ovary 16 mm cyst Repeat U/s 4-6 weeks Testosterone, Prolactin WNL Even though labs are normal meets [place] Criteria Per up to date Two out of three of the following criteria are required to make the diagnosis ?Oligo- and/or anovulation ?Clinical and/or biochemical signs of hyperandrogenism ?Polycystic ovaries (by ultrasound) Pt has ovarian cysts and clinical hyperandrogenism (hirsutism) Will start pt on Metformin 500mg BID take with food Goal to improve insulin resistance and weight loss, off-label Educated GI upset SE Assessment & Plan (10/23/2022 9:16 PM EDT): Trial Metformin again now that vomiting on Diamox has resolved Repeat US ordered, notify results Followup 3 months with new PCP Or sooner PRN Endometriosis 07/03/2022 Chronic back pain 11/03/2020 Overview (10/23/2022): Chronic back pain, multiple sites. No imaging. Denies saddle paresthesias, sciatica, loss of bladder/bowel control. Concern for chronic somatic pain. Comorbid depression Treating w/ Cymbalta 30 mg daily Assessment & Plan (08/18/2023 4:56 PM EDT): Continued back pain, will continue to attempt f/u with Chiropractor. Assessment & Plan (10/23/2022 9:18 PM EDT): Refill Cymbalta Educated on mood and GI SE Take w/ food Followup 3 months or sooner PRN Constipation 11/03/2020 Vitamin D deficiency 11/03/2020 Not immune to hepatitis B virus 08/10/2018 Overview (12/26/2022): Vaccinate pp Resolved Problems Problem Noted Date Diagnosed Date Resolved Date Diabetes due to undrl condit ion w oth diabetic neuro comp 12/26/2022 12/26/2022 Other localized visual field defect, bilateral 10/23/2022 12/26/2022 Overview (10/23/2022): Care managed by OPH Last appt 09/11/22 Followup 6-8 weeks for repeat HVF and photos Class 2 severe obesity due t o excess calories with serious comorbidity and body mass index (BMI) of 39.0 to 39.9 in adult 09/28/2022 4 Assessment & Plan (12/31/2022 9:37 AM EDT): Discussed calorie deficit, recommended reduction of 20-30% of maintenance calories; curing oven tender referral offered. Recommended to decrease soda and sugary beverage consumption. Recommended at least 20 g per meal of protein to assist with satiety. Recommended at least 150 min/week of moderate intensity exercise. Chest pain 07/03/2022 09/28/2022 Class 2 obesity 07/03/2022 09/28/2022 Cough, unspecified 05/28/2021 3 Schizoaffective disorder ([facility]) 11/03/2020 12/26/2022 Encounters Date Type Department Care Team Description 04/14/2025 Plan of Care Documentation [facility] [address] [place] [id number] 04/14/2025 Plan of Care Documentation [facility] [address] [place] [address] 04/13/2025 Patient Outreach [facility] [address] [place] [address] Joanna Rivera MD Care Management (C3CM- Initial assessment/enrollmen t) 04/11/2025 Patient Outreach [facility] [address] [place] [address] Joanna Rivera MD Care Coordination (CM/CHW outreach) 04/04/2025 5:20 PM EST Office Visit [facility] [address] [place] [phone] Dolores Mejia MD Tachycardia, unspecified (Primary Dx) 04/04/2025 Telephone [facility] [address] [place] [address] Dolores Mejia MD 04/04/2025 Travel 04/04/2025 Patient Outreach [address] [address] Joanna Rivera MD Care Coordination (CM/CHW outreach) 04/04/2025 Patient Outreach [address] [address] Joanna Rivera MD Care Coordination (CHW chart review) 04/04/2025 Patient Outreach [facility] [address] [place] [address] Joanna Rivera MD Care Coordination ([facility]- chart review) 04/04/2025 Telephone [facility] [address] [place] [address] Joanna Rivera MD Nurse Triage 04/04/2025 Patient Outreach [address] [address] Joanna Rivera MD 02/22/2025 Telephone [facility] [address], [place] [phone] Joanna Rivera MD from Last 3 Months Immunizations Immunization Administration Dates Next Due Influenza injectable quadriv alent IIV4 with preservative 01/27/2018 Influenza, IIV3, injectable 02/14/2019 Tdap 01/10/2019 Varicella 10/27/2022 Social History Tobacco Use Types Packs/Day Years Used Date Smoking Tobacco: Never Passive Smoke Exposure: Never Smokeless Tobacco: Never Tobacco Cessation:Counseling Given: Not Answered Alcohol Use Standard Drinks/Week Comments Not Currently 0 (1 standard drink = 0.6 oz pur e alcohol) Depression Answer Date Recorded Patient Health Questionnaire-9 Score 6 04/14/2025 Patient Health Questionnaire-9 Score 6 04/14/2025 Last PHQ-9: Questionnaire Data Not on file 1 06/15/2024 Housing Stability Answer Date Recorded What is [...] things needed for daily living? No 06/30/2024 Intimate Partner Violence Answer Date R ecorded Within the last year, have y ou been afraid of your partner or ex-partner? 2 04/14/2025 Within the last year, have y ou been humiliated or emotionally abused in other ways by your partner or ex-partner? 2 Within the last year, have y ou been kicked, hit, slapped, or otherwise physically hurt by your partner or ex-partner? 2 04/14/2025 Within the last year, have y ou been raped or forced to have any kind of sexual activity by your partner or ex-partner? 2 04/14/2025 Utilities Answer Date Recorded In the past 12 months, has t he electric, gas, oil or water company threatened to shut off services in your home? No 06/30/2024 Depression Answer Date Recorded Patient Health Questionnaire-2 Score 0 04/14/2025 Internet Access Answer Date Recorded Internet Access Q1 Yes 06/30/2024 Internet Access Q2 Not on file 06/30/2024 Comments Unknown Sex and Gender Information Value Date Recorded Sex Assigned at Female 02/24/2022 10:31 AM EDT Legal Sex Female 10:31 AM EDT Gender Identity Female 02/24/2022 10:31 AM EDT Sexual Orientation Straight 02/24/2022 10 :31 AM EDT Last Filed Vital Signs Vital Sign Reading Time Taken Comments Blood Pressure 126/87 04/04/2025 5:15 PM EST Pulse 97 04/04/2025 5:15 PM EST Temperature 37.2 C (98.9 F) 04/04/2025 5:15 PM EST Respiratory Rate 20 04/04/2025 5:15 PM EST Oxygen Saturation 98% 04/04/2025 5:15 PM EST Inhaled Oxygen Concentration - - Weight 65.7 kg (144 lb 12.8 oz) 04/04/2025 5:15 PM EST Height 160 cm (5' 3 ) 08/18/2023 4:24 PM EDT Body Mass Index 25.65 08/18/2023 4:24 PM EDT Plan of Treatment Upcoming Encounters Date Type Department Care Team (Late st Contact Info) Description 05/18/2025 2:00 PM EST Office Visit [facility] [address] [place] [address] Joanna Rivera MD [address] [place] [address] Health Maintenance Due Date Last Done Comments Dental Oral Exam 1998 Dental Prophylaxis 1998 Dental X-Ray: Bitewings 1998 Disability Screening 1998 Family Planning (PISQ) 2013 HPV Vaccines (1 - 3-dose series) 2013 Hepatitis B Vaccines (1 of 3 - 19+ 3-dose series) 2017 Pap Smear 11/03/2023 11/02/2020 Dental X-Ray: Full Mouth 12/23/2023 12/21/2020 COVID-19 Vaccine (2 - 2024-2 6 season) 2024 07/04/2022 Influenza Vaccine (#1) 2024 9, 02/14/2019, 01/27/2018 Alcohol/Substance Use Screening 06/30/2025 06/30/2024 SDOH Screening 06/30/2025 06/30/2024 Tobacco Screening 04/04/2026 04/04/2025 Depression Screening 04/14/2026 04/14/2025, 04/14/2025 DTaP/Tdap/Td Vaccines (2 - T d or Tdap) 01/10/2029 01/10/2019 Zoster Vaccines (1 of 2) 2048 RSV Patients and Patients Aged 60 years or older (1 - 1-dose 75+ series) 2073 HIV Screening Completed 07/03/2022 Hepatitis C Screening Completed 07/03/2022 HIB Vaccines Aged Out No longer eligi [...] patient's age to complete this topic Meningococcal Vaccine Aged Out No rehan adriana eligible based on patient's age to complete this topic Pneumococcal Vaccine: Pediatrics (0 to 5 Years) and At-Risk Patients (6 to 49) Years Aged Out No longer eligible b ased on patient's age to complete this topic RSV under 20 months Aged Out No longe r eligible based on patient's age to complete this topic Rotavirus Vaccines Aged Out No longer eligible based on patient's age to complete this topic Procedures Procedure Name Priority Date/Time Associated Diagnosis Comments MAGNESIUM Routine 04/25/2025 10:58 AM EST Tachycardia, unspecified BASIC METABOLIC PANEL Routine 04/25/2025 10:58 AM EST Tachycardia, unspecified CBC Routine 04/25/2025 10:58 AM EST Tachycardia, unspecified ECG 12-LEAD Routine 04/04/2025 5:53 PM EST Tachycardia, unspecified HEPATITIS C AB W/REFL TO HCV RNA, QN, PCR Routine 07/03/2022 12:20 PM EST Health care maintenance HIV 1/2 ANTIGEN/ANTIBODY, FOURTH GENERATION W/RFL Routine 07/03/2022 12:20 PM EST Health care maintenance THINPREP PAP Routine 11/02/2020 3:12 PM EDT from Last 3 Months or Most Recently Relevant to Health Maintenance Results * (ABNORMAL) CBC (04/25/2025 10:58 AM EST) White Blood Count 3.7(L) 4.8 - 10.8 X10*3/uL [facility] Red Blood Count 4.57 4.20 - 5.50 X10*6/uL [facility] Hemoglobin 12.8 12.0 - 16.0 g/dl [facility] Hematocrit 38.9 37.0 - 47.0 % [facility] Mean Corpuscular Volume 85.1 80.0 - 98.0 fL [facility] Mean Corpuscular Hemoglobin 28.0 27.0 - 33.0 pg [facility] Mean Corpuscular HGB Conc 32.9 31.0 - 35.0 g/dl [facility] Red Cell Distribution Width 12.7 11.0 - 16.0 % [facility] Platelet Count 264 160 - 400 X10*3/uL [facility] Mean Platelet Volume 10.0 9.4 - 12.3 fL [facility] NRBC Pct Auto 0.0 0.0 - 0.2 /100WBC [facility] NRBC Abs Auto 0.000 0.0 - 0.012 X10*3/uL [facility] Blood Venous blood specimen / Unknown 04/25/2025 10:58 AM EST 04/25/2025 1:52 PM EST Dolores Mejia MD LAB BLOOD ORDERABLES Final Result [facility] [address] [place] [phone] * ECG 12 lead (04/04/2025 5:53 PM EST) Narrative Dolores Mejia MD - 04/04/2025 5:53 PM EST NSR [address] changes. Dolores Mejia MD ECG ORDERABLES Final Resu lt * Hepatitis C Antibody with Reflex to HCV, RNA, Quantitative, Real-Time PCR (07/03/2022 12:20 PM EST) Hepatitis C Antibody NON-REACT RAVINDER NON-REACT RAVINDER [facility] [place] Index 0.08 <1.00 [facility] [place] [facility] Comment: HCV antibody was non-reactive. There is no laboratory evidence of HCV infection. In most cases, no further action is required. However, if recent HCV exposure is suspected, a test for HCV RNA (test code 00462) is suggested. For additional information please refer to http://[address] [address] [employer]SoloLearn/faq/BKF44p0 (This link is being provided for informational/ educational purposes only.) Blood Venous blood specimen / Unknown 07/03/2022 12:20 PM EST 07/03/2022 12:20 PM EST Narrative [facility] - 07/04/2022 1:27 PM EST FASTING:NO FASTING: NO Aleta Matson PEST TECHNICIAN LAB BLOOD ORDERABLES Final Result [facility] [address] [place] [address], [facility], [place] [address] [facility] [place] [facility] [address] [facility], ([address]) [place] [address] * HIV-1/2 Antigen and Antibodies, Fourth Generation, with Reflexes (07/03/2022 12:20 PM EST) [facility] HIV Antigen/Antibody, 4th Generation NON-REAC TIVE NON-REAC TIVE [facility] [place] [facility] Comment: HIV-1 antigen and HIV-1/HIV-2 antibodies were not detected. There is no laboratory evidence of HIV infection. PLEASE NOTE: This information has been disclosed to you from records whose confidentiality may be protected by state law. If your state requires such protection, then the state law prohibits you from making any further disclosure of the information without the specific written consent of the person to whom it pertains, or as otherwise permitted by law. A general authorization for the release of medical or other information is NOT sufficient for this purpose. For additional information please refer to http://[employer] [address] [employer]oloLearn/faq/LHT668 (This link is being provided for informational/ educational purposes only.) The performance of this assay has not been clinically validated in patients less than 2 years old. Blood Venous blood specimen / Unknown 07/03/2022 12:20 PM EST 07/03/2022 12:20 PM EST Narrative [facility] - 07/04/2022 1:27 PM EST FASTING:NO FASTING: NO us Aleta Matson PEST TECHNICIAN LAB BLOOD ORDERABLES Final Result [facility] [address] [facility], [address]rd Fl, [place] [address] [facility] [address] [facility], (N[address]) [place] [address] * THINPREP PAP (11/02/2020 3:12 PM EDT) Clinical Information: None given [facility] COMMENT SEE COMMENT [facility] Comment: EXPLANATORY NOTE: The Pap is a screening test for cervical cancer. It is not a diagnostic test and is subject to false negative and false positive results. It is most reliable when a satisfactory sample, regularly obtained, is submitted with relevant clinical findings and history, and when the Pap result is evaluated along with historic and current clinical information. Tare Worker : SEE COMMENT [facility] Comment: SXA, CT(ASCP) CT screening location: [address] [address] Interpretation/R esult: Negative for intraepithelial lesion or malignancy. [facility] LMP: NONE [facility]IVEN [facility] Prev. BX: NONE [facility]IVEN [facility] Prev. PAP: NONE [facility]IVEN [facility] Review Tare Worker : SEE COMMENT [facility] Comment: BK,CT(ASCP) CT screening location: [address] SOURCE: None given [facility] Statement Of Adequacy: SEE COMMENT [facility] Comment: Satisfactory for evaluation. Endocervical/transformation zone component present. Age and/or menstrual status not provided 11/02/2020 3:12 PM EDT Candy Bain [employer]ATING [employer] PUMPER LAB PATHOLOGY ORDERABLES Final Result [facility] [address] from Last 3 Months or Most Recently Relevant to Health Maintenance Insurance [facility] C3 DENTAL-[facility] MEDICAID STAND ADULT Care Teams Technical Engineer Relationship Specialty Start Date End Date Joanna Rivera MD [address] [place] [id number] PCP - General Family Medicine 10/24/22 Mathew Mcqueen, RN [address] [place] [phone] Registered Nurse Family Medicine 04/04/25 Mary Espinoza 04/04/25
--- OUTSIDE RECORDS SUMMARY | 2025-04-25 14:46 | XMS_ITS | Encounter Summary ---
Author Organization [employer] Address 75 [facility] [address]t [place] [address] Care Team Providers Care Remote Broadcast Technician Name Role Phone Aleta Matson Primary Care Provider Swetha Joanna Larkin MD Primary Care Provider [phone] Celian Joyner RN Unavailable [phone] Mary Espinoza Unavailable Mathew Mcqueen RN Unavailable [phone] Mary Espinoza Unavailable Encounter Details Date Type Department Care Team (Late Contact Info) Description 09/04/2022 Orders Only [facility] [address] [place] [address] Aleta Matson FNP Social History Tobacco Use Types Packs/Day Years [...] AM EDT documented as of this encounter Plan of Treatment Upcoming Encounters Date Type Department Care Team (Late Contact Info) Description 05/18/2025 2:00 PM EST Office Visit [facility] [address] [place] [address] Joanna Rivera MD [address] [place] [address] documented as of this encounter Visit Diagnoses Not on filedocumented in this encounter Additional Health Concerns Assessment Noted Time PHQ-9 Depression Total Score: 4 07/04/19 23 11:32 AM EST documented as of this encounter Care Teams Remote Broadcast Technician Relationship Specialty Start Date End Date Aleta Matson FNP PCP - General Family Medicine 12/18/21 10/23/22 Joanna Rivera MD [address] [place] [address] PCP - General Family Medicine 10/24/22 Celina Joyner, LUBA [address] [place] [address] Registered Nurse Family Medicine 11/15/24 01/11/25 Mary Espinoza 11/15/24 01/11/25 Mathew Mcqueen, LUBA [address] [place] [address] Registered Nurse Family Medicine 04/04/25 Mary Espinoza 04/04/25 documented as of this encounter
--- OUTSIDE RECORDS SUMMARY | 2025-04-25 14:46 | XMS_ITS | Encounter Summary ---
Author Organization [employer] Address [address] [facility] [address] [place] [address] Care Team Providers Care Air Cargo Specialist Name Role Phone Aleta Matson Primary Care Provider Swetha Joanna aLrkin MD Primary Care Provider Celina Joyner RN Unavailable [phone] Mary Espinoza Unavailable Mathew Mcqueen RN Unavailable [phone] Mary Espinoza Unavailable Reason for Visit * Reason Comments Med Refill Encounter Details Date Type Department Care Team (Late st Contact Info) Description 10/10/2022 Refill [facility] [address] [place] [address] Aleta Matson FNP Social History Tobacco Use [...] suspected to have Coronavirus/COVID-19? No / Unsure 09/17/2022 2:10 PM EDT documented as of this encounter Plan of Treatment Upcoming Encounters Date Type Department Care Team ([facility] st Contact Info) Description 05/18/2025 2:00 PM EST Office Visit [facility] [address] [place] [address] Joanna Rivera MD [address] [place] [address] documented as of this encounter Visit Diagnoses Not on filedocumented in this encounter Additional Health Concerns Assessment Noted Time PHQ-9 Depression Total Score: 4 07/04/19 23 11:32 AM EST documented as of this encounter Care Teams Air Cargo Specialist Relationship Specialty Start Date End Date Aleta Matson FNP PCP - General Family Medicine 12/18/21 10/23/22 Joanna Rivera MD [address] [place] [phone] PCP - General Family Medicine 10/24/22 Celina Joyner RN [address] [place] [address] Registered Nurse Family Medicine 11/15/24 01/11/25 Mary Espinoza 11/15/24 01/11/25 Mathew Mcqueen, LUBA [address] [place] [address] Registered Nurse Family Medicine 04/04/25 Mary Espinoza 04/04/25 documented as of this encounter
--- OUTSIDE RECORDS SUMMARY | 2025-04-25 14:46 | XMS_ITS ---
Author Organization [employer] Address 75 [facility] [address] [place] [address] Care Team Providers Care Complaint Supervisor Name Role Phone Joanna Rivera MD Primary Care Provider [phone] Mathew Mcqueen RN Unavailable [phone] Mary Espinoza Unavailable CM Complex Status:Enrolled (Active) Start date:04/04/2025 Enrollment date:04/13/2025 Enrollment reason:ADT Feed Overview ED- Pt went to [facility] ED on 04/03/25. . Case Team Name Relationship Phone Mathew Mcqueen RN(Responsible Staff) Registered Edson andres [phone] Continued Care and Services Coordination
--- OUTSIDE RECORDS SUMMARY | 2025-04-25 14:46 | XMS_ITS | Clinical Summary ---
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 Active acetaZOLAMIDE (DIAMOX) 500 mg capsule Take 500 mg by mouth. 10/15/2022 Active fremanezumab-vfr m (AJOVY AUTOINJECTOR) 225 mg/1.5 mL AtIn Inject 225 mg under the skin. 06/08/2023 Active Active Problems Problem Noted Date Diagnosed Date Skin laxity 11/18/2023 Breast ptosis 11/18/2023 Family History Medical History Relation Comments Hypertension Father Diabetes Paternal Grandmother Relation Status Comments Father Alive Mother Alive Paternal Grandmother Social History Tobacco Use Types Packs/Day Years Used Date Smoking Tobacco: Never Smokeless Tobacco: Never Alcohol Use Standard Drinks/Week Comments Not Currently 0 (1 standard drink = 0.6 oz pur e alcohol) Education Answer Date Recorded Are you interested in more education? Not on stephanie e 01/06/2023 Are you concerned about learning? Not on file 01/06/2023 No 01/06/2023 No 01/06/2023 Digital Access Answer Date Recorded No 01/06/2023 No 01/06/2023 Reliable internet access at home? Not on file 01/06/2023 Device with a working camera? Not on file Comments Unknown Sex and Gender Information Value Date Recorded Sex Assigned at Not on file Legal Sex Female 10:42 AM EDT Gender Identity Not on file Sexual Orientation Not on file Last Filed Vital Signs Vital Sign Reading Time Taken Comments Blood Pressure 109/61 11/17/2023 10:21 AM EDT Pulse 65 11/17/2023 10:21 AM EDT Temperature - - Respiratory Rate - - Oxygen Saturation - - Inhaled Oxygen Concentration - - Weight 52.9 kg (116 lb 9.6 oz) 11/17/2023 10:21 AM EDT Height 158.8 cm (5' 2.5 ) 11/17/2023 10:21 AM ED T Body Mass Index 20.99 11/17/2023 10:21 AM EDT Plan of Treatment Health Maintenance Due Date Last Done Comments DEPRESSION SCREENING 2010 HPV VACCINES (1 - 3-dose series) 2013 HEPATITIS C SCREENING 2016 HIV ONE-TIME SCREENING (18-6 5 YEARS) 2016 PAP SMEAR 10/26/2019 INFLUENZA VACCINE (#1) 2024 COVID-19 VACCINE ( - 2024-2 6 season) 2024 Adult Td,Tdap Booster 01/10/2029 01/10/2019 SMOKING STATUS SCREENING (On ce After 26 Yrs) Completed 11/17/2023 HEPATITIS A VACCINES Aged Out No long er eligible based on patient's age to complete this topic HIB VACCINES Aged Out No longer eligi ble based on patient's age to complete this topic MENINGOCOCCAL VACCINES (ACWY) Aged Out No longer eligible based on patient's age to complete this topic MENINGOCOCCAL VACCINES (B) Aged Out N o longer eligible based on patient's age to complete this topic PNEUMOCOCCAL VACCINES (0-49 years) Aged Out No longer eligible based on patient's age to complete this topic Medical Devices Not on [place] [address] [place] [address] C3 ACO C3 ACO C3 ACO C3 ACO Care Teams Autom[employer] 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 It is not the complete legal health record.[facility]
== END 2025-04-25 10:54 | disposition home or self-care (01) ==
LOC: HO.HHCL 10:53
PROVIDERS: PCP Family Medicine; Visit Provider Family Medicine
DX: R00.0 Tachycardia, unspecified (principal)
CPT/HCPCS: 36415; 80048; 83735; 84443; 85027